=== PATIENT | female | born 1965 | race Two or more races ===

== ENCOUNTER → 2024-06-26 | Outpatient (CLI) | payer MEDICAID, SELFPAY ==
--- NOTE | 2024-06-26 10:11 | XR_ITS ---
Examination: AP pelvis single view, AP right hip single view Technique one AP pelvis single view, AP right hip single view Exam date and time: June 26, 2024 11:20 AM INDICATIONS: Status post hip replacement FINDINGS: Comparison June 28, 2023 Total right hip arthroplasty. Satisfactory alignment No loosening of the prosthetic components Moderate to advanced left hip osteoarthritis IMPRESSION: Total right hip arthroplasty with satisfactory alignment
== END | disposition home or self-care (01) ==
PROVIDERS: PCP Family Medicine; Referring Provider Orthopaedic Surgery; Visit Provider Orthopaedic Surgery
DX: Z47.1 Aftercare following joint replacement surgery (principal); Z96.641 Presence of right artificial hip joint
CPT/HCPCS: 72170

== ENCOUNTER 2025-01-02 21:21 | Emergency (ER) | payer MEDICAID, SELFPAY ==
[2025-01-02 21:24] VITALS: BMI 32.8
[2025-01-02 21:54] VITALS: BP 109/71; PULSE 74; RESP 18; TEMP 36.7; O2SAT 97
--- NOTE | 2025-01-02 22:13 | EKG_ITS ---
[facility] Test Date: 2025-01-02 Pat Name: ELO PERAZA Department: Room: - Gender: Female Direct Care Supervisor: : 1965 Requested By: Jose Alfredo Zaldivar Order Number: [id number] Reading MD: Jose Alfredo Zaldivar Measurements Intervals [place] Rate: 71 P: 39 [place]: 175 QRS: -1 QRSD: 145 T: 17 QT: 415 QTc: 451 Interpretive Statements SINUS RHYTHM RIGHT BUNDLE BRANCH BLOCK [120+ ms QRS DURATION, UPRIGHT V1, 40+ ms S IN I/aVL/V4/V5/V6] POSSIBLE ANTERIOR MYOCARDIAL INFARCTION , PROBABLY OLD [30 ms Q WAVE IN V3/V4, OR R < 0.2 mV IN V4] Compared to ECG 11/28/2023 19:54:24 Myocardial infarct finding now present /store/S0/[id number].pdf
--- NOTE | 2025-01-02 22:14 | XR_ITS ---
Examination: PA chest single view. TECHNIQUE: Upright PA chest single view. Date and time: 2024, 10:21 PM. INDICATIONS: Chest pain today. FINDINGS: Normal heart size. Lungs are clear. Osseous structures are demineralized. IMPRESSION: No active disease.
--- NOTE | 2025-01-02 22:14 | XR_ITS ---
Examination: CT brain head without contrast. 2-D sagittal coronal reconstructions Date and time of exam:January 02, 2025 1025 hours INDICATIONS: Nausea vomiting dizziness high blood pressure today CTDI: vol (mGy):49.9. DLP: (mGycm):913. Technique: Multiple CT axial sections of the brain have been obtained, 5 mm slice thickness. Contrast has not been administered. 2-D sagittal, coronal reconstructions have been obtained Low dose protocols were performed. One or more of the following dose reduction techniques were used; automated exposure control, adjustment of the mA and/or KV according to patient size, use of iterative reconstruction technique. Findings: No significant ventricular enlargement. Intra-axial or extra-axial hemorrhage density is not seen. No mass effect or midline shift Basal cisterns are not remarkable. Fourth ventricle is midline. Cranial vault intact. Impression: Negative for acute hemorrhage, mass effect or midline shift
--- NOTE | 2025-01-02 22:16 | PD.EDRME ---
Rapid Medical Screening Exam RME Arrival date/time: 01/02/25 21:21 59F with history of HTN, DM, and anxiety presents to ED with several hours of dizziness, possibly blurry vision, and epigastric/chest pain and N/V. Chief Complaint: General Adult/Misc Complain Time Seen by Provider: 01/02/25 21:45 Vital signs: Vital Signs Temperature 98.1 F 01/02/25 21:54 Pulse Rate 74 01/02/25 21:54 Respiratory Rate 18 01/02/25 21:54 Blood Pressure 109/71 01/02/25 21:54 Pulse Oximetry (%) 97 01/02/25 21:54 Oxygen Delivery Method Room Air 01/02/25 21:54
[2025-01-02] MEDS: MECLIZINE HCL 25 MG TABLET PO (22:29)
[2025-01-02] MEDS: ONDANSETRON ODT 4 MG TABRAP PO (22:29)
[2025-01-02 22:38] LABS: Basophils # (Auto) 0.1 Thou/mm3 (0.0-0.2); Basophils % (Auto) 1 % (0-2.5); Eosinophils # (Auto) 0.5 Thou/mm3 (0.0-0.5); Eosinophils % (Auto) 3 % (0-10); Hematocrit 38.7 % (36.0-46.0); Hemoglobin 12.8 g/dL (12.0-16.0); Immature Granulocytes % (Auto) 0 % (0-0); Immature Granulocytes Auto 0.05 Thou/mm3 (0.00-0.00); Lymphocytes # (Auto) 4.4 Thou/mm3 (1.0-4.8); Lymphocytes % (Auto) 33 % (10-50); Mean Corpuscular HGB Conc 33.1 g/dl (31.0-37.0); Mean Corpuscular Hemoglobin 25.1 pg (25.0-35.0); Mean Corpuscular Volume 76 fL (80-100); Monocytes # (Auto) 0.9 Thou/mm3 (0.0-0.8); Monocytes % (Auto) 6 % (0-12); Neutrophils # (Auto) 7.4 Thou/mm3 (1.8-7.7); Neutrophils % (Auto) 56 % (37-80); Nucleated Red Blood Cell % 0 /100 WBC (0); Platelet Count 344 Thou/mm3 (140-440); RDW Standard Deviation 43.9 fL (36.4-46.3); White Blood Count 13.2 Thou/mm3 (3.6-11.0)
[2025-01-02 22:54] LABS: Collection Type, Urine Clean Catch; RBC,Urine 0 /hpf (0-3); WBC,Urine 0 /hpf (0-5)
[2025-01-02 23:01] LABS: Alanine Aminotransferase 18 U/L (10-49); Albumin, Serum 4.5 gm/dL (3.5-5.0); Albumin/Globulin Ratio 1.5 (1.2-2.2); Alkaline Phosphatase 121 U/L (46-116); Anion Gap 9 (7-16); Aspartate Amino Transferase 19 U/L (0-34); BUN/Creatinine Ratio 20 Ratio (12-20); Bilirubin,Total 0.4 mg/dL (0.3-1.2); Blood Urea Nitrogen 18 mg/dL (9-23); Calcium 9.4 mg/dL (8.3-10.6); Calcium (Corrected) 9.4 mg/dL (8.5-10.1); Carbon Dioxide 29.8 mMol/L (20.0-31.0); Chloride 98 mMol/L (98-107); Creatinine (Component) 0.9 mg/dL (0.6-1.3); Estimated Creatinine Clearance 70.8 mL/min (>60); Globulin 3.1 gm/dL (2.3-3.5); Glucose 209 mg/dL (74-106); Lipase 89 U/L (12-53); Osmolality,Calculated 281 (275-295); Potassium 4.8 mMol/L (3.4-5.1); Sodium 137 mMol/L (136-145); Total Protein 7.6 gm/dL (5.7-8.2); Troponin I < 0.002 ng/mL (0.0-0.045); eGFR > 60 See Note
[2025-01-02 23:25] LABS: Bilirubin,Urine Negative (Negative); Blood,Urine Negative (Negative); Clarity,Urine Clear (Clear/Hazy); Color,Urine Lt-Yellow (Lt Yel-Yel); Glucose, Urine 4+ (Negative); Ketones,Urine Negative (Negative); Leukocyte Esterase,Urine Negative (Negative); Nitrite,Urine Negative (Negative); Protein,Urine Negative (Neg - Trace); Specific Gravity,Urine 1.037 (1.001-1.035); Squamous Epithelial Cell,Urine < 1 /hpf (0-5); Urobilinogen,Urine Negative mg/dL (0.0-1.0)
--- NOTE | 2025-01-03 00:02 | EDNOTE_ITS ---
<Statement entered by Tayla Be MD - 01/04/25 18:57> As co-signing physician, I was present and available for consult prn. I concur with the plan and care as documented by the midlevel provider. ED General RME/HPI General Chief complaint: General Adult/Misc Complain Stated complaint: HIGH BLOOD SUGER Time Seen by Provider: 01/02/25 21:45 Source: patient and family Arrival date/time: 01/02/25 21:21 59-year-old female presents to the ED with a complaint of several hours of dizziness with blurry visio that began approximately 1800 tonight. Patient also also showed concern for an Accu-Chek that read as high as 280. Patient took insulin and presented here. Patient denies uvaldo chest pain. Mode of arrival: ambulatory Limitations: no limitations RME / HPI RME / HPI narrative: 01/02/25 21:21 59F with history of HTN, DM, and anxiety presents to ED with several hours of dizziness, possibly blurry vision, and epigastric/chest pain and N/V. Onset (ago): hour(s) (6 hours) Severity scale (1-10): 5 Quality: stabbing (Patient points to the area of the xiphoid stating a stabbing sensation.) Consistency: intermittent and now resolved Relieving factors: medication Exacerbating factors: none Associated symptoms: denies other symptoms Related Data Home Medications ?Medication ?Instructions ?Recorded ?Confirmed ATORVASTATIN CALCIUM 20 mg PO QDAY ##30 03/01/17 Insulin Glargine,Hum.rec.anlog 35 units SQ HS ##15 (Anayeliaglar Starr U-100) Metformin Hcl 1,000 mg PO BID ##60 7 glipizide 10 mg tablet 10 mg PO QDAY ##30 03/01/17 hydrochlorothiazide 12.5 mg capsule 12.5 mg PO QDAY ## 30 03/01/17 lisinopril 20 mg tablet 20 mg PO QDAY ##30 03/01/17 metoprolol tartrate 25 mg tablet 25 mg PO BID ##60 Previous Rx's ?Medication ?Instructions ?Recorded ibuprofen 600 mg tablet 600 mg PO Q6H #30 tabs 02/02 promethazine 12.5 mg tablet 12.5 mg PO TID PRN nausea and 02/02/23 vomiting #10 tabs hydrocodone 5 mg-acetaminophen 325 1 tab PO BID PRN pa in #8 tabs 11/26/23 mg tablet ibuprofen 800 mg tablet 800 mg PO TID PRN pain #30 t abs 11/26/23 Allergies Allergy/AdvReac Type Severity Reaction Status Date / Time No Known Allergies Allergy Verified 01/02/25 21:27 Review of Systems Constitutional Constitutional: Reports system reviewed and no additional complaints, except as documented Eyes Eyes: Reports system reviewed and no additional complaints, except as documented, Denies dry eyes, Denies exophthalmos and Reports floaters Cardiovascular Cardiovascular: Denies chest pain with activity and Denies claudication ED Exam General Limitations: Present no limitations General appearance: Present alert and in no apparent distress Head Head exam: Present atraumatic Eye Eye exam: Present normal appearance, PERRL and EOMI ENT ENT exam: Present normal exam, normal oropharynx and mucous membranes moist Neck Neck exam: Present normal inspection, full ROM and trachea midline Chest Chest inspection: Present normal inspection and symmetric chest wall rise Respiratory Respiratory exam: Present normal lung sounds bilaterally Cardiovascular Cardiovascular exam: Present regular rate, normal rhythm and normal heart sounds Abdominal Exam Abdominal exam: Present soft and normal bowel sounds Extremities Exam Extremities exam: Present normal inspection and full ROM Back Exam Back exam: Present normal inspection and full ROM Neurological Exam Neurological exam: Present alert, oriented X3 and CN II-XII intact Psychiatric Psychiatric exam: Present normal affect and normal mood Skin Skin exam: Present warm, dry, intact and normal color Course Course Course Narrative: Patient will have a chest pain workup. Patient was given meclizine and ondansetron which helped. Quality Measures none (N/A) Orders Category Date Time Status Blood glucose [Bedside Blood Glucose] NOW Care 01/02/25 21:31 Active EKG (ED ONLY) *Do not use* NOW Care 01/02/25 22:[address] head/brain wo con Stat Exams 01/02/25 22:14 Completed EKG (ED Only) Stat Exams 01/02/25 22:13 Draft XR chest 1V portable Stat Exams 01/02/25 22:14 Completed CBC Stat Lab 01/02/25 22:28 Completed Comprehensive Metabolic Panel Stat Lab 01/02/25 22:28 Completed Lipase Stat Lab 01/02/25 22:28 Completed Troponin I Stat Lab 01/02/25 22:28 Completed Urinalysis Stat Lab 01/02/25 22:45 Completed Meclizine HCl [Antivert] Med 01/02/25 22:14 Discontinued 25 mg PO X1 ONE Ondansetron Odt [Zofran Odt] Med 01/02/25 22:14 Discontinued 4 mg PO X1 ONE Vital Signs Vital signs: Vital Signs Temperature 98.1 F 01/02/25 21:54 Pulse Rate 74 01/02/25 21:54 Respiratory Rate 18 01/02/25 21:54 Blood Pressure 109/71 01/02/25 21:54 Pulse Oximetry (%) 97 01/02/25 21:54 Oxygen Delivery Method Room Air 01/02/25 21:54 N/A Discharge Plan Plan Patient Disposition: HOME (Self Care) Discharge Disposition comment: Discharged home in no apparent distress Patient condition on transfer: Stable Prescriptions/Referrals Prescriptions/Med Rec: No Action ATORVASTATIN CALCIUM 20 MG tablet 20 mg PO QDAY Qty: 30 lisinopril 20 MG tablet 20 mg PO QDAY Qty: 30 glipizide 10 MG tablet 10 mg PO QDAY Qty: 30 hydrochlorothiazide 12.5 MG capsule 12.5 mg PO QDAY Qty: 30 metoprolol tartrate 25 MG tablet 25 mg PO BID Qty: 60 Insulin Glargine,Hum.rec.anlog (Basaglar Kwikpen U-100) 100 UNIT/1 ML INSULN.PEN 35 units SQ HS Qty: 15 Metformin Hcl 1,000 MG tablet 1,000 mg PO BID Qty: 60 ibuprofen 800 mg tablet 800 mg PO TID PRN (Reason: pain) Qty: 30 0RF hydrocodone-acetaminophen 5-325 mg tablet 1 tab PO BID MDD 10 PRN (Reason: pain) Qty: 8 0RF promethazine 12.5 mg tablet 12.5 mg PO TID PRN (Reason: nausea and vomiting) Qty: 10 0RF ibuprofen 600 mg tablet 600 mg PO Q6H Qty: 30 0RF Referrals: Hunter Mike MD [Primary Care Provider] - In 1 week Problem List Clinical Impression: Abdominal pain, Episode of syncope Patient/Caregiver Discharge Instructions Discharge Activity: activity as tolerated Education Materials: Abdominal Pain, Causes of Syncope Print Language: Australian Stand Alone Forms: [employer] Info., Patient Portal Info Letter PA/DORENE Supervising Physician PA/[employer] Supervising Physician: Haile LEVY Narrative MDM hospital course: Patient had a chest pain workup as well as meclizine and ondansetron which helped. Patient tells me her symptoms are resolved although she continues to have pain to the area of her xiphoid. Clinical Information Provided by patient Medical Records Reviewed [facility] (N/A) and other Labs/Rad/Tests considered, not Ordered Describe details: N/A Chronic Illness/Social Conditions which may negatively complicate care or outcome(s)-explain: other (Diabetes type 2) EKG EKG Interpretation narrative: EKG interpretation heart rate 71 there is a right bundle branch block. This was compared to twelve-lead that was done 11/28/2023 Lab Interpretation Labs: interpreted by wy Lab(s) interpretation(s): Chest pain workup labs are relatively negative with the exception of the EKG as well as lipase which was at 89 Imaging Imaging interpretation: none Medication Administration(s) Medication Administration History Discontinued Medications Meclizine HCl (Meclizine Hcl 25 Mg Tablet) 25 mg PO X1 ONE Stop: 01/02/25 22:15 Last Admin: 01/02/25 22:29 Dose: 25 mg Documented By: Ondansetron HCl (Ondansetron Odt 4 Mg Tabrap) 4 mg PO X1 ONE; Protocol Stop: 01/02/25 22:15 Last Admin: 01/02/25 22:29 Dose: 4 mg Documented By: Done Diagnosis Differential diagnosis: Vertigo versus syncope versus subdural Dispositon Disposition: Discharge Home
== END 2025-01-03 00:36 | disposition home or self-care (01) ==
PROVIDERS: Physician Assistant; Emergency Provider Emergency Medicine; PCP Family Medicine
DX: R10.9 Unspecified abdominal pain (principal); R55 Syncope and collapse; I45.10 Unspecified right bundle-branch block; R07.9 Chest pain, unspecified; R11.2 Nausea with vomiting, unspecified; R42 Dizziness and giddiness; I10 Essential (primary) hypertension
CPT/HCPCS: 36415; 70450; 71045; 80053; 81001; 83690; 84484; 85025; 93005; 99284; Q0162; A9270

== ENCOUNTER 2025-05-23 08:11 | Outpatient (AMB) | payer MEDICAID, SELFPAY ==
--- NOTE | 2025-05-23 08:22 | PD.ORTHCLVIS ---
Vital signs 05/23/25 08:29 Height 1.6 m Height Method Measured Weight 83.489 kg Weight Measurement Method Standing Scale BMI 32.5 BP 130/74 Blood Pressure Source Automatic Cuff Blood Pressure Location Left Upper Arm Position Sitting Respiration 18 Pulse 72 Pulse Source Monitor Temp 97.8 F Temp Source Temporal Artery Scan Pulse Oximetry (%) 96 Oxygen Delivery Method Room Air Med/Allergies Allergies & Medications Allergies No Known Allergies Allergy (Verified 05/23/25 08:41) Medication Reconciliation ATORVASTATIN CALCIUM 20 mg PO QDAY ##30 03/01/17 [History Confirmed 05/23/25] Insulin Glargine,Hum.rec.anlog (Basaglar Kwikpen U-100) 35 units SQ HS ##15 03/01/17 [History Confirmed 05/23/25] Metformin Hcl 1,000 mg PO BID ##60 03/01/17 [History Confirmed 05/23/25] glipizide 10 mg tablet 10 mg PO QDAY ##30 03/01/17 [History Confirmed 05/23/25] hydrochlorothiazide 12.5 mg capsule 12.5 mg PO QDAY ##30 03/01/17 [History Confirmed 05/23/25] lisinopril 20 mg tablet 20 mg PO QDAY ##30 03/01/17 [History Confirmed 05/23/25] metoprolol tartrate 25 mg tablet 25 mg PO BID ##60 03/01/17 [History Confirmed 05/23/25] ibuprofen 600 mg tablet 600 mg PO Q6H #30 tabs 02/02/23 [Rx Confirmed 05/23/25] promethazine 12.5 mg tablet 12.5 mg PO TID PRN nausea and vomiting #10 tabs 02/02/23 [Rx Confirmed 05/23/25] hydrocodone 5 mg-acetaminophen 325 mg tablet 1 tab PO BID PRN pain #8 tabs 11/26/23 [Rx Confirmed 05/23/25] ibuprofen 800 mg tablet 800 mg PO TID PRN pain #30 tabs 11/26/23 [Rx Confirmed 05/23/25] Exam Exam Patient is in no acute distress and is cooperative with the examination today. Breathing is nonlabored. In no respiratory distress. Patient has no paraspinal tenderness. Spinal deformity cannot be appreciated. The gait of the patient is nonantalgic Bilateral extremities were evaluated and demonstrates sensation intact to light touch. Palpable pedal pulses are present. No significant edema is present. Bilateral knees were examined and the patient has full strength and range of motion.. The right hip was examined. Patient was able to flex to 90 degrees, adduct to 30 degrees, abduct to 40 degrees, internally rotate to 20 degrees, and externally rotate to 20 degrees. Patient has a negative logroll. Stinchfield is negative. The patient is nontender diffusely to touch. The left hip was examined. Left hip incision is clean dry intact. Leg lengths are equal. She has painless range of motion. X-rays from 06/23/2024 from [facility] demonstrates a cementless right total hip replacement in good alignment and position. I see no radiolucent lines or pedestal. Assessment and Plan Problem List (1) Neuropathy, lateral femoral cutaneous nerve: Status: Acute Plan: Patient is a 59-year-old female status post right total hip replacement who is doing well. She has some pain from her lateral femoral cutaneous nerve which we discussed is very common after total hip replacement that the anterior approach. She is doing well overall and has minimal pain. Will see her on an as needed basis. We discussed her total hip replacement looks great Office Procedures GNS Level of Care Nursing/Assessment Patient Status: Initial/New Patient Nursing Assessment/Reassesment: Medication Reconciliation, Update PMH in EMR and Vital Signs Coordination of Care: Complex Care and Chronic Disease 1-5, Education Complex Pt/Fam, Consent,records obtained, informed consent, Results/Orders obtained and Staff clarify orders Special Needs: Language special needs New Patient Charge New Patient Point Assignment: 1094 New Patient Point Charge: CAMELID FIBER SORTER Level 3 ([id number]) MA Intake Visit Data Collection New Patient or Established: Established Patient (seen at [facility] within 3 years) Reason for Visit:: RIGHT HIP PAIN Seen by Clinical Staff ONLY (RN/MA): No Line Pilot Required: Yes PCP or OBGYN visit in last 3 months: Yes Hx Now: No Do You Feel Safe at Home: Yes Authorities Contacted: N/A Questionairres Past Medical History Past Medical History Have you ever been diagnosed with any of the following: Subjective Visit Visit for: follow up visit and hip Immunization / Flu Flu Vaccine in the Last 12 Months: Yes Flu Vaccine Exclusion Criteria: Already Received History of Present Illness Chief complaint: right hip pain HISTORY OF PRESENT ILLNESS I, Naresh Puentes, have obtained verbal consent from the patient, to be recorded during this encounter which may include, but not limited to, medical history, examination, treatment plans, and relevant health information.? Patient was informed that recording will be read and reviewed by myself before inclusion in the medical chart. The patient presents today with right hip pain. She is accompanied by an certified court/medical interpreter. She currently has cholesterol, diabetes, and high blood pressure. She underwent a surgical procedure on her right hip on 06/02/2022, performed by Dr. Hong. Post-surgery, she has been experiencing pain localized to the anterolateral aspect of her hip. She reports no history of falls since the surgery. She completed a course of physical therapy, which she found beneficial, but continues to experience mild discomfort and an unusual sensation in the affected area. She also reports numbness and tingling sensations. She does not experience any pain during ambulation. Ambulatory data Ambulatory device: none Treatments Improvement with previous injections: No Improvement with PT: No Improvement with NSAIDS: no Review of Systems Review of Systems: All systems negative unless otherwise noted in HPI.
[2025-05-23 08:29] VITALS: BP 130/74; PULSE 72; RESP 18; TEMP 36.6; O2SAT 96; BMI 32.5
== END 2025-05-23 08:28 | disposition home or self-care (01) ==
LOC: HODSRG 08:11
PROVIDERS: PCP Family Medicine; Referring Provider Family Medicine; Supervising Provider Orthopaedic Surgery Adult Reconstructive Orthopaedic Surgery; Visit Provider Orthopaedic Surgery Adult Reconstructive Orthopaedic Surgery
DX: G57.10 Meralgia paresthetica, unspecified lower limb (principal)
CPT/HCPCS: 99203; G0463